=== PATIENT | male | born 1945 ===

== ENCOUNTER 2023-06-10 04:23 | Day surgery (SDC) | payer OTHER ==
[2023-06-04 11:00] VITALS: BMI 29.2
[~2023-06-10 04:23] MED LIST: ACETAMINOPHEN 325 MG TABLET (FP) PO PRN
[2023-06-10] MEDS ORDERED: POVIDONE-IODINE 5% OPHTHALMIC PREP 30 ML SOLUTION ONE (07:30)
[2023-06-10] MEDS ORDERED: TRIAMCINOLONE ACET 40MG/1ML VIAL ONE (07:30)
[2023-06-10] MEDS ORDERED: TETRACAINE 0.5% OPHTH SOLN 2 ML BOTTLE ONE (07:30)
[2023-06-10] MEDS ORDERED: LIDOCAINE 1%/EPI 1:100000 (20 ML MULTI DOSE VIAL) ONE (07:35)
[2023-06-10] MEDS ORDERED: OFLOXACIN 0.3% OPHTHALMIC SOLUTION 5 ML BOTTLE ONE (09:20)
[2023-06-10] MEDS: OFLOXACIN 0.3% OPHTHALMIC SOLUTION 5 ML BOTTLE OP SCH (09:40)
[2023-06-10 09:46] VITALS: RESP 20
[2023-06-10] MEDS ORDERED: MIDAZOLAM HCL 2 MG/2 ML SINGLE DOSE VIAL ONE (10:53)
[2023-06-10] MEDS: TETRACAINE 0.5% OPHTH SOLN 2 ML BOTTLE OS ONE ×2 (11:03)
[2023-06-10] MEDS: POVIDONE-IODINE 5% OPHTHALMIC PREP 30 ML SOLUTION OS ONE ×2 (11:04)
[2023-06-10] MEDS: BSS (NA/CA/MG/K) BALANCED SALT SOLUTION OPHTH SOLN 15 ML BOTTLE OS ONE ×2 (11:11)
[2023-06-10] MEDS: TRIAMCINOLONE ACETONIDE 40 MG/ML 10 ML VIAL IJ ONE ×2 (11:13)
[2023-06-10] MEDS: LIDOCAINE 1%/EPI 1:100000 (20 ML MULTI DOSE VIAL) INF ONE ×3 (11:13)
[2023-06-10 11:56] VITALS: TEMP 98
[2023-06-10] MEDS ORDERED: ACETAMINOPHEN 325 MG TABLET (FP) ONE (11:59)
[2023-06-10] MEDS: ACETAMINOPHEN 325 MG TABLET (FP) PO ONE (12:01)
[2023-06-10 12:42] VITALS: BP 120/51; PULSE 50
== END 2023-06-10 12:44 | disposition home or self-care (01) ==
LOC: JASU-SURG 04:23
PROVIDERS: ATTEND Ophthalmology
PROC: 08U107Z Supplement of Left Eye with Autologous Tissue Substitute, Open Approach (ICD-10-PCS; principal; 2023-06-10 11:00)
DX: H11.022 Central pterygium of left eye (principal)